=== PATIENT | male | born 1955 | race African-American/Black ===

== ENCOUNTER 2017-08-15 14:12 | Day surgery (SDC) | payer MEDICARE, MEDICAID ==
[~2017-08-15] VITALS: Ht 182.9 cm; Wt 117.9 kg
[~2017-08-15 14:12] MED LIST: ASPI-1159 PO; ATOR-2 PO; EPLE25TA10 PO; GLIP10TA10 PO; HYDR100T26 PO; METO100T16 PO; NIFE30TA94 PO
[2017-08-15] MEDS ORDERED: AMLO10TA80 MT (16:01)
[2017-08-15] MEDS ORDERED: DILT240C62 MT (16:01)
[2017-08-15] MEDS ORDERED: AMI2 PO (16:01)
[2017-08-15] MEDS ORDERED: CHOL100044 MT (16:01)
[2017-08-15] MEDS ORDERED: SEVE800T8 MT (16:01)
[2017-08-15] MEDS ORDERED: APIX2.5T MT (16:01)
[2017-08-15] MEDS ORDERED: FENTANYL CITRATE/PF 50MCG/ML 2ML VIAL ONE ×2 (16:39→17:08)
[2017-08-15] MEDS ORDERED: LIDOCAINE HCL 2% JELLY 5ML ONE (16:40)
[2017-08-15] MEDS ORDERED: MIDAZOLAM HCL 5 MG/5 ML VIAL ONE (16:40)
[2017-08-15] MEDS ORDERED: TETRACAINE/BENZOCAINE/BUTAMBEN 20 GM SPRAY MM ONE (16:40)
== END 2017-08-15 19:25 | disposition home or self-care (01) ==
LOC: CARD 14:12
PROVIDERS: ATTEND Specialist
DX: I48.92 Unspecified atrial flutter (principal); I35.1 Nonrheumatic aortic (valve) insufficiency; I34.0 Nonrheumatic mitral (valve) insufficiency; I13.11 Hypertensive heart and chronic kidney disease without heart failure, with stage 5 chronic kidney disease, or end stage renal disease; E11.22 Type 2 diabetes mellitus with diabetic chronic kidney disease; N18.6 End stage renal disease; E78.5 Hyperlipidemia, unspecified; Z98.890 Other specified postprocedural states; Z99.2 Dependence on renal dialysis; Z79.82 Long term (current) use of aspirin; Z79.899 Other long term (current) drug therapy
CPT/HCPCS: 92960; 93005; 93312; J2250; J3010

== ENCOUNTER 2017-11-28 06:18 | Day surgery (SDC) | payer MEDICARE, MEDICAID ==
[~2017-11-28] VITALS: Ht 182.9 cm; Wt 50.8 kg
[~2017-11-28 06:18] MED LIST changes: +AMI2 PO; +AMLO10TA80 MT; +APIX2.5T MT; +CHOL100044 MT; +DILT240C62 MT; +SEVE800T8 MT
[2017-11-28] MEDS ORDERED: LIDOCAINE HCL 1% 20ML VIAL (Pyxis) INJ ONE (07:43)
[2017-11-28] MEDS ORDERED: IODIXANOL 320MG/ML 100 ML BOTTLE IV ONE ×2 (07:43→09:29)
[2017-11-28 08:09] LABS: BASOPHILS % 1.3 % (0.0-2.0); HEMATOCRIT. 41.7 % (42.0-52.0); HEMOGLOBIN. 13.6 g/dL (14.0-18.0); LYMPHOCYTES % 30.3 % (20.0-50.0); MEAN CORPUSCULAR HEMOGLOBIN 32.4 pg (28.0-32.0); MEAN CORPUSCULAR VOLUME 99.3 fL (80.0-94.0); MEAN PLATELET VOLUME 9.2 fl (7.4-10.4); MONOCYTES % 13.1 % (2.0-8.0); NEUTROPHILS % 50.3 % (40.0-76.0); PLATELET 207 x1000/uL (130-400); RED CELL DISTRIBUTION WIDTH 19.3 % (11.6-14.6)
[2017-11-28 08:14] LABS: INR 1.1; PARTIAL THROMBOPLASTIN TIME 28.2 sec (23.4-31.0); PROTHROMBIN TIME 10.8 sec (9.1-11.1)
[2017-11-28] MEDS ORDERED: LOSA50TA20 MT (08:18)
[2017-11-28] MEDS ORDERED: COR3 MT (08:18)
[2017-11-28] MEDS ORDERED: MIDAZOLAM HCL 2 MG/2 ML VIAL ONE (08:45)
[2017-11-28] MEDS ORDERED: FENTANYL CITRATE/PF 50MCG/ML 2ML VIAL ONE (08:45)
[2017-11-28] MEDS ORDERED: ONDANSETRON HCL 4MG/2ML INJ IV PRN (10:00)
[2017-11-28] MEDS ORDERED: ACETAMINOPHEN 325MG TABLET PO PRN (10:00)
[2017-11-28] MEDS ORDERED: HEPARIN SODIUM 1,000 UNIT/1ML VIAL IV ONE (14:25)
== END 2017-11-28 13:45 | disposition home or self-care (01) ==
LOC: CCL 06:18
PROVIDERS: ATTEND Specialist
DX: I25.10 Atherosclerotic heart disease of native coronary artery without angina pectoris (principal); I51.7 Cardiomegaly; I12.0 Hypertensive chronic kidney disease with stage 5 chronic kidney disease or end stage renal disease; E11.22 Type 2 diabetes mellitus with diabetic chronic kidney disease; I48.92 Unspecified atrial flutter; N18.6 End stage renal disease; Z79.01 Long term (current) use of anticoagulants; Z79.899 Other long term (current) drug therapy; Z79.82 Long term (current) use of aspirin; E78.5 Hyperlipidemia, unspecified; Z98.890 Other specified postprocedural states; Z99.2 Dependence on renal dialysis
CPT/HCPCS: 36415; 80048; 85025; 85610; 85730; 93458; 99152; 99153; C1769; C1887; C1893; J1644; J2250; J3010; J3490; Q9967

== ENCOUNTER 2018-01-16 09:59 | Day surgery (SDC) | payer MEDICARE, MEDICAID ==
[~2018-01-16] VITALS: Ht 182.9 cm; Wt 51.3 kg
[~2018-01-16 09:59] MED LIST changes: +COR3 MT; +DILT-2 MT; -DILT240C62 MT; +LOSA50TA20 MT
[2018-01-16] MEDS ORDERED: MIDAZOLAM HCL 5 MG/5 ML VIAL ONE (11:14)
[2018-01-16] MEDS ORDERED: TETRACAINE/BENZOCAINE/BUTAMBEN 20 GM SPRAY MM ONE (11:14)
[2018-01-16] MEDS ORDERED: LIDOCAINE HCL 2% JELLY 5ML ONE (11:14)
[2018-01-16] MEDS ORDERED: FENTANYL CITRATE/PF 50MCG/ML 2ML VIAL ONE (11:14)
[2018-01-16] MEDS ORDERED: ONDANSETRON HCL 4MG/2ML INJ IV PRN (12:15)
[2018-01-16] MEDS ORDERED: ACETAMINOPHEN 325MG TABLET PO PRN (12:15)
== END 2018-01-16 15:15 | disposition home or self-care (01) ==
LOC: CARD 09:59
PROVIDERS: ATTEND Specialist
DX: I48.92 Unspecified atrial flutter (principal); I08.0 Rheumatic disorders of both mitral and aortic valves; I25.10 Atherosclerotic heart disease of native coronary artery without angina pectoris; E78.5 Hyperlipidemia, unspecified; I12.0 Hypertensive chronic kidney disease with stage 5 chronic kidney disease or end stage renal disease; E11.22 Type 2 diabetes mellitus with diabetic chronic kidney disease; N18.6 End stage renal disease; Z99.2 Dependence on renal dialysis; Z79.01 Long term (current) use of anticoagulants; Z79.82 Long term (current) use of aspirin; Z79.899 Other long term (current) drug therapy; Z98.890 Other specified postprocedural states
CPT/HCPCS: 82962; 92960; 93005; 93312; 99152; 99153; J2250; J3010; G0500

== ENCOUNTER 2019-07-02 12:34 | Emergency (ER) | payer MEDICARE, MEDICAID ==
[~2019-07-02] VITALS: Ht 182.9 cm; Wt 125.0 kg
[~2019-07-02 12:34] MED LIST changes: -AMLO10TA80 MT; -ASPI-1159 PO; +ASPI-1497 PO; -ATOR-2 PO; +ATOR20TA PO; -DILT-2 MT; +DILT240C96 MT; -EPLE25TA10 PO; -GLIP10TA10 PO; -HYDR100T26 PO; -LOSA50TA20 MT; +LOSA50TA41 MT; -METO100T16 PO; -NIFE30TA94 PO
[2019-07-02 13:17] LABS: BASOPHILS % 0.7 % (0.0-2.0); EOSINOPHILS % 0.6 % (0.0-5.0); HEMATOCRIT. 32.5 % (42.0-52.0); HEMOGLOBIN. 10.6 g/dL (14.0-18.0); LYMPHOCYTES % 16.2 % (20.0-50.0); MEAN CORPUSCULAR HEMOGLOBIN 29.1 pg (28.0-32.0); MEAN CORPUSCULAR VOLUME 89.3 fL (80.0-94.0); MEAN PLATELET VOLUME 8.2 fl (7.4-10.4); MONOCYTES % 12.4 % (2.0-8.0); NEUTROPHILS % 70.1 % (40.0-76.0); PLATELET 235 x1000/uL (130-400); RED BLOOD CELL COUNT 3.64 mill/uL (4.7-6.1); RED CELL DISTRIBUTION WIDTH 16.2 % (11.6-14.6)
[2019-07-02 13:25] LABS: CHLORIDE 101 mEq/L (98-107)
[2019-07-02 13:27] LABS: INR 1.1; PROTHROMBIN TIME 11.6 sec (9.6-11.0)
[2019-07-02] MEDS ORDERED: CYCLOBENZAPRINE 10MG TABLET PO ONE (14:15)
[2019-07-02] MEDS ORDERED: MORPHINE SULFATE 4 MG/ML CPJ (NOT FOR IM USE) IV ONE (14:15)
[2019-07-02 15:59] VITALS: BP 119/61
== END 2019-07-02 17:12 | disposition home or self-care (01) ==
LOC: ER 13:04
DX: S29.012A Strain of muscle and tendon of back wall of thorax, initial encounter (principal); Y93.B9 Activity, other involving muscle strengthening exercises; Y92.89 Other specified places as the place of occurrence of the external cause; Z99.3 Dependence on wheelchair; Z74.01 Bed confinement status; I12.0 Hypertensive chronic kidney disease with stage 5 chronic kidney disease or end stage renal disease; N18.6 End stage renal disease; Z99.2 Dependence on renal dialysis
CPT/HCPCS: 36415; 71045; 80053; 83605; 84484; 85025; 85610; 93005; 96374; 99285; J2270

== ENCOUNTER 2019-07-09 11:53 | Inpatient (IN) | payer MEDICARE, MEDICAID ==
[~2019-07-09] VITALS: Ht 182.9 cm; Wt 99.3 kg
[2019-07-09 14:02] LABS: BASOPHILS % 0.6 % (0.0-2.0); EOSINOPHILS % 0.5 % (0.0-5.0); HEMATOCRIT. 36.3 % (42.0-52.0); HEMOGLOBIN. 11.8 g/dL (14.0-18.0); LYMPHOCYTES % 11.6 % (20.0-50.0); MEAN CORPUSCULAR VOLUME 89.3 fL (80.0-94.0); MEAN PLATELET VOLUME 8.3 fl (7.4-10.4); MONOCYTES % 9.5 % (2.0-8.0); NEUTROPHILS % 77.8 % (40.0-76.0); PLATELET 283 x1000/uL (130-400); RED BLOOD CELL COUNT 4.06 mill/uL (4.7-6.1); RED CELL DISTRIBUTION WIDTH 16.2 % (11.6-14.6)
[2019-07-09 14:11] LABS: INR 1.1; PARTIAL THROMBOPLASTIN TIME 36.4 sec (23.4-31.0); PROTHROMBIN TIME 12.1 sec (9.6-11.0)
[2019-07-09 14:13] LABS: CHLORIDE 101 mEq/L (98-107)
[2019-07-09] MEDS ORDERED: SODIUM CHLORIDE 0.9% 1,000 ML IV ONE (14:38)
[2019-07-09] MEDS ORDERED: DEXTROSE 50% WATER 50ML SYRINGE IV PRN ×2 (17:45→18:30)
[2019-07-09] MEDS ORDERED: MAGNESIUM/ALUMINUM HYDROXIDE/SIMETHICONE 30ML UDC PO PRN (17:45)
[2019-07-09] MEDS ORDERED: ENOXAPARIN 40MG/0.4ML SYR SUBCUT SCH (17:45)
[2019-07-09] MEDS: BLOOD SUGAR DIAGNOSTIC STRIP TEST SCH ×2 (17:45→21:00)
[2019-07-09] MEDS ORDERED: GUAIFENESIN 200MG/10ML SUGAR FREE UDC PO PRN (17:45)
[2019-07-09] MEDS ORDERED: DOCUSATE SODIUM 100MG CAPSULE PO PRN (17:45)
[2019-07-09] MEDS ORDERED: LORAZEPAM 2MG/ML CPJ IV PRN (17:45)
[2019-07-09] MEDS ORDERED: PIPERACILLIN/TAZ 3.375G PREMIX 50 ML IV SCH (17:45)
[2019-07-09] MEDS ORDERED: ONDANSETRON HCL 4MG/2ML INJ IV PRN (17:45)
[2019-07-09] MEDS ORDERED: ACETAMINOPHEN 325MG TABLET PO PRN (17:45)
[2019-07-09] MEDS ORDERED: IPRATROPIUM/ALBUTEROL 0.5-3(2.5)MG/3ML NEB NEB PRN (17:45)
[2019-07-09] MEDS ORDERED: DIPHENHYDRAMINE 50MG/ML VIAL IV PRN (17:45)
[2019-07-09] MEDS ORDERED: HYDRALAZINE 20MG/ML VIAL IV PRN (17:45)
[2019-07-09] MEDS ORDERED: MORPHINE SULFATE 2 MG/ML CPJ (NOT FOR IM USE) IV PRN (18:25)
[2019-07-09] MEDS ORDERED: HYDROCODONE/ACETAMINOPHEN 10/325MG TABLET PO PRN (18:25)
[2019-07-09] MEDS: INSULIN LISPRO 100 UNITS/ML SUBCUT SCH (22:00)
[2019-07-10] MEDS ORDERED: HYDRALAZINE 20MG/ML VIAL IV PRN (05:41)
[2019-07-10 06:03] LABS: BASOPHILS % 0.4 % (0.0-2.0); EOSINOPHILS % 0.4 % (0.0-5.0); HEMATOCRIT. 39.3 % (42.0-52.0); HEMOGLOBIN. 12.6 g/dL (14.0-18.0); LYMPHOCYTES % 11.7 % (20.0-50.0); MEAN CORPUSCULAR HEMOGLOBIN 28.8 pg (28.0-32.0); MEAN CORPUSCULAR VOLUME 89.9 fL (80.0-94.0); MEAN PLATELET VOLUME 8.2 fl (7.4-10.4); NEUTROPHILS % 76.5 % (40.0-76.0); PLATELET 240 x1000/uL (130-400); RED BLOOD CELL COUNT 4.37 mill/uL (4.7-6.1); RED CELL DISTRIBUTION WIDTH 16.8 % (11.6-14.6)
[2019-07-10 06:06] LABS: CHLORIDE 103 mEq/L (98-107)
[2019-07-10 06:15] LABS: LDL CHOLESTEROL 32 mg/dL (5-100)
[2019-07-10 06:17] LABS: T4 FREE 1.32 ng/dL (0.76-1.46)
[2019-07-10 06:18] LABS: HDL CHOLESTEROL 31 mg/dL (40-59)
[2019-07-10] MEDS ORDERED: PIPERACILLIN/TAZ 3.375G PREMIX 50 ML IV SCH ×2 (10:35→20:00)
[2019-07-10] MEDS ORDERED: PIPERACILLIN/TAZ 3.375G PREMIX 50 ML IV NR (10:45)
[2019-07-10] MEDS: INSULIN LISPRO 100 UNITS/ML SUBCUT SCH ×6 (11:28→21:00)
[2019-07-10] MEDS: BLOOD SUGAR DIAGNOSTIC STRIP TEST SCH ×4 (11:31→21:23)
[2019-07-10] MEDS: ENOXAPARIN 40MG/0.4ML SYR SUBCUT SCH (11:43)
[2019-07-10 13:30] VITALS: BP 174/91
[2019-07-10] MEDS: CLONIDINE 0.1MG TABLET PO PRN (14:26)
[2019-07-10 16:54] VITALS: BP 160/95
[2019-07-10] MEDS: PIPERACILLIN/TAZ 2.25G PREMIX 50 ML IV SCH (18:03)
[2019-07-10] MEDS: SODIUM CHLORIDE 0.9% INJ 3ML FLUSH IVF SCH ×2 (18:04→21:44)
[2019-07-10 20:00] VITALS: BP 163/91
[2019-07-11] VITALS: BP 160/90
[2019-07-11] MEDS: PIPERACILLIN/TAZ 2.25G PREMIX 50 ML IV SCH ×4 (01:08→20:48)
[2019-07-11 04:00] VITALS: BP 188/97
[2019-07-11] MEDS: SODIUM CHLORIDE 0.9% INJ 3ML FLUSH IVF SCH ×3 (05:43→21:12)
[2019-07-11] MEDS: HYDRALAZINE 20MG/ML VIAL IV PRN (05:56)
[2019-07-11] MEDS: BLOOD SUGAR DIAGNOSTIC STRIP TEST SCH ×4 (06:42→21:25)
[2019-07-11] MEDS: INSULIN LISPRO 100 UNITS/ML SUBCUT SCH ×4 (07:23→22:21)
[2019-07-11 09:19] VITALS: BP 177/97
[2019-07-11] MEDS: ENOXAPARIN 40MG/0.4ML SYR SUBCUT SCH (11:16)
[2019-07-11] MEDS: CLONIDINE 0.1MG TABLET PO PRN (12:09)
[2019-07-11 12:34] VITALS: BP 160/90
[2019-07-11 16:18] VITALS: BP 166/89
[2019-07-11 20:00] VITALS: BP 134/80
[2019-07-12] VITALS: BP 167/86
[2019-07-12] MEDS: PIPERACILLIN/TAZ 2.25G PREMIX 50 ML IV SCH ×2 (01:42→10:29)
[2019-07-12 03:10] VITALS: BP 154/86
[2019-07-12] MEDS: SODIUM CHLORIDE 0.9% INJ 3ML FLUSH IVF SCH ×3 (06:00→21:06)
[2019-07-12] MEDS: INSULIN LISPRO 100 UNITS/ML SUBCUT SCH ×4 (07:08→21:06)
[2019-07-12] MEDS: BLOOD SUGAR DIAGNOSTIC STRIP TEST SCH ×4 (07:08→20:51)
[2019-07-12 08:00] VITALS: BP 176/83
[2019-07-12] MEDS: ENOXAPARIN 40MG/0.4ML SYR SUBCUT SCH (10:34)
[2019-07-12 12:00] VITALS: BP 187/91
[2019-07-12 16:00] VITALS: BP 172/89
[2019-07-12 20:00] VITALS: BP 158/93
[2019-07-13] VITALS: BP 155/86
[2019-07-13] MEDS: PIPERACILLIN/TAZOBACTAM 2.25 G in DEXTROSE 5% WATER 50 ML IV SCH ×3 (02:36→17:56)
[2019-07-13 04:00] VITALS: BP 151/88
[2019-07-13] MEDS: BLOOD SUGAR DIAGNOSTIC STRIP TEST SCH ×4 (06:17→21:47)
[2019-07-13] MEDS: SODIUM CHLORIDE 0.9% INJ 3ML FLUSH IVF SCH ×3 (06:28→21:47)
[2019-07-13 06:40] LABS: HEMATOCRIT. 33.8 % (42.0-52.0); HEMOGLOBIN. 11.1 g/dL (14.0-18.0); MEAN CORPUSCULAR HEMOGLOBIN 28.8 pg (28.0-32.0); MEAN CORPUSCULAR VOLUME 87.9 fL (80.0-94.0); MEAN PLATELET VOLUME 8.8 fl (7.4-10.4); PLATELET 211 x1000/uL (130-400); RED BLOOD CELL COUNT 3.84 mill/uL (4.7-6.1); RED CELL DISTRIBUTION WIDTH 16.1 % (11.6-14.6)
[2019-07-13 08:00] VITALS: BP 176/86
[2019-07-13] MEDS: INSULIN LISPRO 100 UNITS/ML SUBCUT SCH ×4 (08:35→21:52)
[2019-07-13 10:05] LABS: PLATELET ESTIMATE NORMAL
[2019-07-13 12:00] VITALS: BP 136/78
[2019-07-13] MEDS: ENOXAPARIN 40MG/0.4ML SYR SUBCUT SCH (12:15)
[2019-07-13 16:00] VITALS: BP 171/88
[2019-07-13] MEDS: CLONIDINE 0.1MG TABLET PO PRN (16:39)
[2019-07-13 20:00] VITALS: BP 145/73
[2019-07-14] VITALS: BP 118/74
[2019-07-14] MEDS: PIPERACILLIN/TAZOBACTAM 2.25 G in DEXTROSE 5% WATER 50 ML IV SCH ×3 (02:06→18:22)
[2019-07-14 04:00] VITALS: BP 135/81
[2019-07-14] MEDS: SODIUM CHLORIDE 0.9% INJ 3ML FLUSH IVF SCH ×3 (04:56→21:06)
[2019-07-14] MEDS: BLOOD SUGAR DIAGNOSTIC STRIP TEST SCH ×4 (07:01→21:05)
[2019-07-14 08:00] VITALS: BP 195/90
[2019-07-14] MEDS: INSULIN LISPRO 100 UNITS/ML SUBCUT SCH ×4 (09:23→22:08)
[2019-07-14] MEDS: HYDRALAZINE 20MG/ML VIAL IV PRN ×2 (09:27→21:06)
[2019-07-14] MEDS: ENOXAPARIN 40MG/0.4ML SYR SUBCUT SCH (11:15)
[2019-07-14 12:00] VITALS: BP_SYST 164; BP_SYST 169; BP_DIAS 78
[2019-07-14] MEDS: HYDRALAZINE HCL 50MG TABLET PO SCH ×2 (13:26→22:00)
[2019-07-14] MEDS ORDERED: LACTULOSE 20G/30ML UDC PO NR (14:00)
[2019-07-14 16:00] VITALS: BP 162/85
[2019-07-14 20:00] VITALS: BP 195/91
[2019-07-15] VITALS: BP 166/84
[2019-07-15] MEDS: PIPERACILLIN/TAZOBACTAM 2.25 G in DEXTROSE 5% WATER 50 ML IV SCH ×3 (03:05→18:00)
[2019-07-15 04:00] VITALS: BP 164/92
[2019-07-15] MEDS: HYDRALAZINE HCL 50MG TABLET PO SCH (06:00)
[2019-07-15] MEDS: SODIUM CHLORIDE 0.9% INJ 3ML FLUSH IVF SCH ×2 (07:04→14:00)
[2019-07-15] MEDS: BLOOD SUGAR DIAGNOSTIC STRIP TEST SCH ×3 (07:20→18:05)
[2019-07-15] MEDS: INSULIN LISPRO 100 UNITS/ML SUBCUT SCH ×3 (07:40→17:50)
[2019-07-15 08:00] VITALS: BP 191/90
[2019-07-15] MEDS: ENOXAPARIN 40MG/0.4ML SYR SUBCUT SCH (11:00)
[2019-07-15 12:00] VITALS: BP 159/75
[2019-07-15 13:56] VITALS: BP 159/75
[2019-07-15] MEDS ORDERED: HYDRALAZINE HCL 50MG TABLET PO SCH (14:00)
[2019-07-15 16:00] VITALS: BP 172/99
[2019-07-15] MEDS: CLONIDINE 0.1MG TABLET PO PRN (18:56)
== END 2019-07-15 19:20 | DRG 91 ==
LOC: ER 12:14 → 7WST 16:32 → EDBEDREQTM 16:34 → EDBEDREQ 16:34 → EDBEDREQTM 16:36 → ENRESERV 07-10 12:37 → 6WST 07-12 02:51
PROVIDERS: ADMIT Internal Medicine; ATTEND Internal Medicine
PROC: 5A1D70Z Performance of Urinary Filtration, Intermittent, Less than 6 Hours Per Day (ICD-10-PCS; 2019-07-11)
PROC: 5A1D70Z Performance of Urinary Filtration, Intermittent, Less than 6 Hours Per Day (ICD-10-PCS; 2019-07-13)
PROC: 5A1D70Z Performance of Urinary Filtration, Intermittent, Less than 6 Hours Per Day (ICD-10-PCS; principal; 2019-07-15)
DX: G92 Toxic encephalopathy (principal); N18.6 End stage renal disease; I13.2 Hypertensive heart and chronic kidney disease with heart failure and with stage 5 chronic kidney disease, or end stage renal disease; E46 Unspecified protein-calorie malnutrition; I50.42 Chronic combined systolic (congestive) and diastolic (congestive) heart failure; I69.351 Hemiplegia and hemiparesis following cerebral infarction affecting right dominant side; N25.81 Secondary hyperparathyroidism of renal origin; L97.909 Non-pressure chronic ulcer of unspecified part of unspecified lower leg with unspecified severity; L89.522 Pressure ulcer of left ankle, stage 2; E11.22 Type 2 diabetes mellitus with diabetic chronic kidney disease; D64.9 Anemia, unspecified; E78.5 Hyperlipidemia, unspecified; E11.40 Type 2 diabetes mellitus with diabetic neuropathy, unspecified; L89.152 Pressure ulcer of sacral region, stage 2; L89.891 Pressure ulcer of other site, stage 1; Z20.828 Contact with and (suspected) exposure to other viral communicable diseases; E11.319 Type 2 diabetes mellitus with unspecified diabetic retinopathy without macular edema; E87.5 Hyperkalemia; D72.810 Lymphocytopenia; R74.0 Nonspecific elevation of levels of transaminase and lactic acid dehydrogenase [LDH]; E83.59 Other disorders of calcium metabolism; I25.10 Atherosclerotic heart disease of native coronary artery without angina pectoris; Z74.01 Bed confinement status; Z99.2 Dependence on renal dialysis; Z99.3 Dependence on wheelchair; Z79.01 Long term (current) use of anticoagulants; Z79.899 Other long term (current) drug therapy; Z79.82 Long term (current) use of aspirin
CPT/HCPCS: 36415; 71045; 80048; 80053; 80061; 82962; 83880; 84439; 84443; 84484; 85025; 87635; 93005; 99285; J0360; J1650; J1815; J2543; J7030; J7060; U0003-CS

== ENCOUNTER 2019-08-13 14:40 | Inpatient (IN) | payer MEDICARE, MEDICAID ==
[~2019-08-13] VITALS: Ht 182.9 cm; Wt 93.4 kg
[2019-08-13] MEDS ORDERED: PIPERACILLIN/TAZ 3.375G PREMIX 50 ML IV ONE (15:30)
[2019-08-13] MEDS ORDERED: VANCOMYCIN 1 G PREMIX 200 ML IV ONE (15:30)
[2019-08-13 17:31] LABS: BASOPHILS % 0.3 % (0.0-2.0); CHLORIDE 102 mEq/L (98-107); EOSINOPHILS % 0.8 % (0.0-5.0); HEMATOCRIT. 35.3 % (42.0-52.0); HEMOGLOBIN. 11.4 g/dL (14.0-18.0); LYMPHOCYTES % 15.1 % (20.0-50.0); MEAN CORPUSCULAR HEMOGLOBIN 29.4 pg (28.0-32.0); MEAN CORPUSCULAR VOLUME 91.4 fL (80.0-94.0); MEAN PLATELET VOLUME 8.1 fl (7.4-10.4); MONOCYTES % 11.7 % (2.0-8.0); NEUTROPHILS % 72.1 % (40.0-76.0); PLATELET 162 x1000/uL (130-400); RED BLOOD CELL COUNT 3.86 mill/uL (4.7-6.1); RED CELL DISTRIBUTION WIDTH 20.6 % (11.6-14.6)
[2019-08-13 17:38] LABS: INR 1.1; PROTHROMBIN TIME 11.2 sec (9.6-11.0)
[2019-08-13] MEDS ORDERED: HYDROCODONE/ACETAMINOPHEN 10/325MG TABLET PO PRN (21:00)
[2019-08-13] MEDS ORDERED: IPRATROPIUM/ALBUTEROL 0.5-3(2.5)MG/3ML NEB HHN PRN (21:00)
[2019-08-13] MEDS ORDERED: DOCUSATE SODIUM 100MG CAPSULE PO PRN (21:00)
[2019-08-13] MEDS ORDERED: HYDRALAZINE 20MG/ML VIAL IV PRN (21:00)
[2019-08-13] MEDS ORDERED: LORAZEPAM 2MG/ML CPJ IV PRN (21:00)
[2019-08-13] MEDS ORDERED: DIPHENHYDRAMINE 50MG/ML VIAL IV PRN (21:00)
[2019-08-13] MEDS ORDERED: ONDANSETRON HCL 4MG/2ML INJ IV PRN (21:00)
[2019-08-13] MEDS ORDERED: GUAIFENESIN 200MG/10ML SUGAR FREE UDC PO PRN (21:00)
[2019-08-13] MEDS ORDERED: MORPHINE SULFATE 2 MG/ML CPJ (NOT FOR IM USE) IV PRN (21:00)
[2019-08-13] MEDS ORDERED: MAGNESIUM/ALUMINUM HYDROXIDE/SIMETHICONE 30ML UDC PO PRN (21:00)
[2019-08-13] MEDS ORDERED: ACETAMINOPHEN 325MG TABLET PO PRN (21:00)
[2019-08-13] MEDS ORDERED: ENOXAPARIN 40MG/0.4ML SYR SUBCUT SCH (21:00)
[2019-08-13] MEDS ORDERED: CLONIDINE 0.1MG TABLET PO PRN (21:00)
[2019-08-13] MEDS ORDERED: VANCOMYCIN 750 MG PREMIX 150 ML IV NR (23:00)
[2019-08-13 23:10] VITALS: BP 151/84
[2019-08-14 00:39] VITALS: BP 151/84
[2019-08-14] MEDS ORDERED: PIPERACILLIN/TAZOBACTAM 2.25 G in DEXTROSE 5% WATER 50 ML IV SCH (01:00)
[2019-08-14] MEDS: SODIUM CHLORIDE 0.9% INJ 3ML FLUSH IVF SCH ×4 (02:48→21:32)
[2019-08-14] MEDS ORDERED: DOCU-138 MT (03:10)
[2019-08-14] MEDS ORDERED: NEPVIT MT (03:10)
[2019-08-14] MEDS ORDERED: HYDR-4135 MT (03:10)
[2019-08-14] MEDS ORDERED: CLON-457 PO (03:10)
[2019-08-14] MEDS ORDERED: ASCO500C18 MT (03:10)
[2019-08-14] MEDS ORDERED: HYDR-3281 PO (03:10)
[2019-08-14] MEDS ORDERED: TOPUD PO (03:10)
[2019-08-14 04:00] VITALS: BP 134/72
[2019-08-14 08:06] VITALS: BP 159/91
[2019-08-14] MEDS ORDERED: PIPERACILLIN/TAZ 3.375G PREMIX 50 ML IV SCH (09:00)
[2019-08-14 09:27] LABS: HEMATOCRIT. 31.8 % (42.0-52.0); HEMOGLOBIN. 10.3 g/dL (14.0-18.0); MEAN CORPUSCULAR HEMOGLOBIN 29.4 pg (28.0-32.0); MEAN CORPUSCULAR VOLUME 90.9 fL (80.0-94.0); MEAN PLATELET VOLUME 7.8 fl (7.4-10.4); PLATELET 135 x1000/uL (130-400); RED CELL DISTRIBUTION WIDTH 19.8 % (11.6-14.6)
[2019-08-14 09:37] LABS: CHLORIDE 102 mEq/L (98-107)
[2019-08-14 09:47] LABS: CREATINE KINASE 77 IU/L (39-308)
[2019-08-14 09:51] LABS: CREATINE KINASE MB FRACTION 3.3 ng/mL (0.5-3.6)
[2019-08-14] MEDS ORDERED: DEXTROSE 50% WATER 50ML SYRINGE IV PRN (11:45)
[2019-08-14] MEDS: BLOOD SUGAR DIAGNOSTIC STRIP TEST SCH ×3 (11:45→21:25)
[2019-08-14 12:00] VITALS: BP 152/89
[2019-08-14] MEDS: INSULIN LISPRO 100 UNITS/ML SUBCUT SCH ×3 (12:15→21:32)
[2019-08-14 12:51] LABS: PLATELET ESTIMATE NORMAL
[2019-08-14] MEDS: CEFTRIAXONE 1 G PREMIX 50 ML IV SCH (15:29)
[2019-08-14] MEDS: METRONIDAZOLE 500MG TABLET PO SCH ×2 (15:30→23:03)
[2019-08-14 16:00] VITALS: BP 131/79
[2019-08-14 20:00] VITALS: BP 143/75
[2019-08-15] VITALS (7 sets, daily range): BP systolic 126–164; BP diastolic 75–91
[2019-08-15] MEDS: METRONIDAZOLE 500MG TABLET PO SCH ×3 (06:55→21:07)
[2019-08-15] MEDS: SODIUM CHLORIDE 0.9% INJ 3ML FLUSH IVF SCH ×3 (06:55→21:07)
[2019-08-15] MEDS: BLOOD SUGAR DIAGNOSTIC STRIP TEST SCH ×4 (06:55→21:00)
[2019-08-15] MEDS: INSULIN LISPRO 100 UNITS/ML SUBCUT SCH ×4 (06:58→21:00)
[2019-08-15] MEDS ORDERED: DEXAMETHASONE 4MG/ML 1ML VIAL ONE (07:26)
[2019-08-15] MEDS ORDERED: GENTAMICIN SULF 40MG/ML 2ML VIAL ONE (07:26)
[2019-08-15] MEDS ORDERED: LIDOCAINE HCL 1% 20ML VIAL (Pyxis) INJ ONE (07:27)
[2019-08-15] MEDS ORDERED: NORMAL SALINE 0.9% 10 ML SYR ONE (07:27)
[2019-08-15] MEDS ORDERED: BACITRACIN 15GM TUBE TOP ONE ×2 (07:27→08:44)
[2019-08-15] MEDS ORDERED: BACITRACIN 50,000 UNITS/VIAL ONE (07:28)
[2019-08-15] MEDS ORDERED: BUPIVACAINE HCL/PF 0.5% (5MG/ML) 10ML ONE (07:29)
[2019-08-15] MEDS ORDERED: SUCCINYLCHOLINE CHLORIDE 200MG/10ML IV ONE (08:51)
[2019-08-15] MEDS ORDERED: GLYCOPYRROLATE 0.2 MG/ML 2ML VIAL ONE (08:51)
[2019-08-15] MEDS ORDERED: METOCLOPRAMIDE HCL 10MG/2ML VIAL ONE (08:51)
[2019-08-15] MEDS ORDERED: LIDOCAINE HCL/PF 1% 10 MG/ML 5ML VIAL ONE (08:51)
[2019-08-15] MEDS ORDERED: MIDAZOLAM HCL 2 MG/2 ML VIAL ONE (08:51)
[2019-08-15] MEDS ORDERED: ONDANSETRON HCL 4MG/2ML INJ ONE (08:51)
[2019-08-15] MEDS ORDERED: FENTANYL CITRATE/PF 50MCG/ML 2ML VIAL ONE (08:51)
[2019-08-15] MEDS ORDERED: PROPOFOL 200MG/20ML VIAL IV ONE (08:51)
[2019-08-15] MEDS: ENOXAPARIN 30MG/0.3ML SYR SUBCUT SCH (09:00)
[2019-08-15] MEDS ORDERED: SODIUM CHLORIDE 0.9% 1,000 ML IV ONE (10:01)
[2019-08-15] MEDS ORDERED: HYDROMORPHONE HCL/PF 2MG/ML CPJ IV PRN (10:15)
[2019-08-15] MEDS ORDERED: ONDANSETRON HCL 4MG/2ML INJ IV PRN (10:15)
[2019-08-15] MEDS ORDERED: VANCOMYCIN 500 MG PREMIX 100 ML IV NR (11:30)
[2019-08-15] MEDS: CEFTRIAXONE 1 G PREMIX 50 ML IV SCH (16:10)
[2019-08-15] MEDS ORDERED: EPOETIN ALFA 4000UNITS/ML VIAL SUBCUT SCH (21:00)
[2019-08-16] VITALS: BP 151/86
[2019-08-16 04:00] VITALS: BP 146/76
[2019-08-16] MEDS: METRONIDAZOLE 500MG TABLET PO SCH ×3 (05:46→22:58)
[2019-08-16] MEDS: SODIUM CHLORIDE 0.9% INJ 3ML FLUSH IVF SCH ×3 (05:48→21:39)
[2019-08-16] MEDS: INSULIN LISPRO 100 UNITS/ML SUBCUT SCH ×4 (05:59→21:00)
[2019-08-16] MEDS: BLOOD SUGAR DIAGNOSTIC STRIP TEST SCH ×4 (05:59→21:35)
[2019-08-16 08:00] VITALS: BP 137/83
[2019-08-16] MEDS: ENOXAPARIN 30MG/0.3ML SYR SUBCUT SCH (09:34)
[2019-08-16 12:00] VITALS: BP 139/76
[2019-08-16 16:00] VITALS: BP 164/91
[2019-08-16] MEDS: CEFTRIAXONE 1 G PREMIX 50 ML IV SCH (17:54)
[2019-08-16] MEDS ORDERED: VANCOMYCIN 500 MG PREMIX 100 ML IV SCH (19:30)
[2019-08-16 20:24] VITALS: BP 136/80
[2019-08-17 00:03] VITALS: BP 148/82
[2019-08-17 04:00] VITALS: BP 152/81
[2019-08-17] MEDS: SODIUM CHLORIDE 0.9% INJ 3ML FLUSH IVF SCH ×3 (05:11→22:43)
[2019-08-17] MEDS: METRONIDAZOLE 500MG TABLET PO SCH ×3 (05:14→22:51)
[2019-08-17] MEDS: BLOOD SUGAR DIAGNOSTIC STRIP TEST SCH ×4 (06:03→21:00)
[2019-08-17] MEDS: INSULIN LISPRO 100 UNITS/ML SUBCUT SCH ×4 (06:37→21:00)
[2019-08-17 06:47] LABS: BASOPHILS % 1.1 % (0.0-2.0); EOSINOPHILS % 2.2 % (0.0-5.0); HEMATOCRIT. 31.6 % (42.0-52.0); HEMOGLOBIN. 10.3 g/dL (14.0-18.0); LYMPHOCYTES % 21.6 % (20.0-50.0); MEAN CORPUSCULAR HEMOGLOBIN 29.5 pg (28.0-32.0); MEAN CORPUSCULAR VOLUME 90.6 fL (80.0-94.0); MEAN PLATELET VOLUME 8.5 fl (7.4-10.4); MONOCYTES % 14.6 % (2.0-8.0); NEUTROPHILS % 60.5 % (40.0-76.0); PLATELET 171 x1000/uL (130-400); RED BLOOD CELL COUNT 3.49 mill/uL (4.7-6.1); RED CELL DISTRIBUTION WIDTH 20.1 % (11.6-14.6)
[2019-08-17 08:14] VITALS: BP 122/83
[2019-08-17] MEDS: ENOXAPARIN 30MG/0.3ML SYR SUBCUT SCH (08:51)
[2019-08-17 12:00] VITALS: BP 123/72
[2019-08-17 16:00] VITALS: BP 136/70
[2019-08-17] MEDS: CEFTRIAXONE 1 G PREMIX 50 ML IV SCH (16:21)
[2019-08-17 20:00] VITALS: BP 126/68
[2019-08-18] VITALS (7 sets, daily range): BP systolic 131–171; BP diastolic 72–88
[2019-08-18] MEDS: SODIUM CHLORIDE 0.9% INJ 3ML FLUSH IVF SCH ×2 (06:00→14:39)
[2019-08-18] MEDS: INSULIN LISPRO 100 UNITS/ML SUBCUT SCH ×3 (06:27→16:49)
[2019-08-18] MEDS: BLOOD SUGAR DIAGNOSTIC STRIP TEST SCH ×3 (06:27→16:40)
[2019-08-18] MEDS: METRONIDAZOLE 500MG TABLET PO SCH ×2 (06:36→14:39)
[2019-08-18] MEDS: ENOXAPARIN 30MG/0.3ML SYR SUBCUT SCH (09:11)
[2019-08-18] MEDS: CEFTRIAXONE 1 G PREMIX 50 ML IV SCH (15:47)
== END 2019-08-18 22:00 | DRG 239 ==
LOC: ER 14:40 → 5WST 18:22 → EDBEDREQTM 18:24 → EDBEDREQ 18:24 → ENRESERV 21:27 → 5WST 08-14 20:56
PROVIDERS: ADMIT Internal Medicine; ATTEND Internal Medicine
PROC: 5A1D70Z Performance of Urinary Filtration, Intermittent, Less than 6 Hours Per Day (ICD-10-PCS; 2019-08-14)
PROC: 5A1D70Z Performance of Urinary Filtration, Intermittent, Less than 6 Hours Per Day (ICD-10-PCS; 2019-08-15)
PROC: 0Y6N0ZD Detachment at Left Foot, Partial 4th Ray, Open Approach (ICD-10-PCS; principal; 2019-08-18)
PROC: 0JB70ZZ Excision of Back Subcutaneous Tissue and Fascia, Open Approach (ICD-10-PCS; 2019-08-18)
DX: E11.52 Type 2 diabetes mellitus with diabetic peripheral angiopathy with gangrene (principal); L89.153 Pressure ulcer of sacral region, stage 3; N18.6 End stage renal disease; E46 Unspecified protein-calorie malnutrition; I13.2 Hypertensive heart and chronic kidney disease with heart failure and with stage 5 chronic kidney disease, or end stage renal disease; I48.92 Unspecified atrial flutter; I50.30 Unspecified diastolic (congestive) heart failure; L97.329 Non-pressure chronic ulcer of left ankle with unspecified severity; M86.8X7 Other osteomyelitis, ankle and foot; I69.154 Hemiplegia and hemiparesis following nontraumatic intracerebral hemorrhage affecting left non-dominant side; N25.81 Secondary hyperparathyroidism of renal origin; E11.69 Type 2 diabetes mellitus with other specified complication; E11.22 Type 2 diabetes mellitus with diabetic chronic kidney disease; E11.65 Type 2 diabetes mellitus with hyperglycemia; D64.9 Anemia, unspecified; E78.5 Hyperlipidemia, unspecified; I25.10 Atherosclerotic heart disease of native coronary artery without angina pectoris; D69.6 Thrombocytopenia, unspecified; M85.80 Other specified disorders of bone density and structure, unspecified site; R13.10 Dysphagia, unspecified; E11.40 Type 2 diabetes mellitus with diabetic neuropathy, unspecified; E11.319 Type 2 diabetes mellitus with unspecified diabetic retinopathy without macular edema; E11.21 Type 2 diabetes mellitus with diabetic nephropathy; E83.59 Other disorders of calcium metabolism; Z99.2 Dependence on renal dialysis; Z68.27 Body mass index [BMI] 27.0-27.9, adult; Z79.899 Other long term (current) drug therapy; Z79.82 Long term (current) use of aspirin
CPT/HCPCS: 36415; 71045; 73630; 80048; 80053; 80202; 82550; 82553; 82962; 83036; 83605; 84145; 84484; 85025; 85651; 86140; 87070; 87075; 87077; 88304; 88305; 88311; 93005; 99291; J0330; J0696; J1100; J1580; J1650; J1815; J2250; J2405; J2543; J2704; J2765; J3010; J3370; J3490; J7060

== ENCOUNTER 2019-11-24 14:06 | Inpatient (IN) | payer MEDICARE, MEDICAID ==
[~2019-11-24] VITALS: Ht 172.7 cm; Wt 104.8 kg
[~2019-11-24 14:06] MED LIST changes: +ASCO500C18 MT; +CLON-457 PO; +DOCU-138 MT; +HYDR-3281 PO; +HYDR-4135 MT; +NEPVIT MT; +TOPUD PO
[2019-11-24] MEDS ORDERED: LORAZEPAM 2MG/ML CPJ IM STA (15:10)
[2019-11-24] MEDS ORDERED: ACETAMINOPHEN 325MG TABLET PO ONE (15:15)
[2019-11-24] MEDS ORDERED: PIPERACILLIN/TAZ 3.375G PREMIX 50 ML IV ONE (15:15)
[2019-11-24] MEDS ORDERED: SODIUM CHLORIDE 0.9% 1000ML BAG (SEPSIS BOLUS) IV ONE (15:15)
[2019-11-24] MEDS ORDERED: VANCOMYCIN 1 G PREMIX 200 ML IV ONE (15:15)
[2019-11-24] MEDS ORDERED: LOSARTAN POTASSIUM 50 MG TABLET PO SCH (15:30)
[2019-11-24 17:03] LABS: HEMATOCRIT. 36.4 % (42.0-52.0); HEMOGLOBIN. 11.7 g/dL (14.0-18.0); MEAN CORPUSCULAR HEMOGLOBIN 30.6 pg (28.0-32.0); MEAN CORPUSCULAR VOLUME 95.1 fL (80.0-94.0); MEAN PLATELET VOLUME 8.6 fl (7.4-10.4); PLATELET 134 x1000/uL (130-400); RED BLOOD CELL COUNT 3.83 mill/uL (4.7-6.1); RED CELL DISTRIBUTION WIDTH 17.4 % (11.6-14.6)
[2019-11-24 17:04] LABS: CHLORIDE 103 mEq/L (98-107)
[2019-11-24 17:08] LABS: INR 1.1; PARTIAL THROMBOPLASTIN TIME 24.3 sec (23.4-31.0); PROTHROMBIN TIME 11.2 sec (9.6-11.0)
[2019-11-24] MEDS: CARVEDILOL 6.25 MG TABLET PO SCH (17:50)
[2019-11-24 18:16] LABS: PLATELET ESTIMATE NORMAL
[2019-11-24] MEDS: DILTIAZEM HCL 60MG TABLET PO SCH (18:37)
[2019-11-24] MEDS ORDERED: MAGNESIUM/ALUMINUM HYDROXIDE/SIMETHICONE 30ML UDC PO PRN (19:45)
[2019-11-24] MEDS ORDERED: CEFTRIAXONE 1 G PREMIX 50 ML IV NR (19:45)
[2019-11-24] MEDS ORDERED: ONDANSETRON HCL 4MG/2ML INJ IV PRN (19:45)
[2019-11-24] MEDS ORDERED: LORAZEPAM 2MG/ML CPJ IV PRN (19:45)
[2019-11-24] MEDS ORDERED: ENOXAPARIN 40MG/0.4ML SYR SUBCUT SCH (19:45)
[2019-11-24] MEDS ORDERED: CLONIDINE 0.1MG TABLET PO PRN (19:45)
[2019-11-24] MEDS ORDERED: DIPHENHYDRAMINE 50MG/ML VIAL IV PRN (19:45)
[2019-11-24] MEDS ORDERED: AZITHROMYCIN 500 MG in DEXT 5% WATER 250 ML IV NR (21:00)
[2019-11-25] MEDS: DILTIAZEM HCL 60MG TABLET PO SCH ×2 (02:27→05:43)
[2019-11-25] MEDS: ACETAMINOPHEN 325MG TABLET PO PRN (02:27)
[2019-11-25 03:30] VITALS: BP 151/81
[2019-11-25 04:00] VITALS: BP 145/78
[2019-11-25 06:36] LABS: HEMATOCRIT. 35.9 % (42.0-52.0); HEMOGLOBIN. 11.8 g/dL (14.0-18.0); MEAN CORPUSCULAR HEMOGLOBIN 31.4 pg (28.0-32.0); MEAN CORPUSCULAR VOLUME 95.7 fL (80.0-94.0); MEAN PLATELET VOLUME 8.9 fl (7.4-10.4); PLATELET 124 x1000/uL (130-400); RED BLOOD CELL COUNT 3.75 mill/uL (4.7-6.1); RED CELL DISTRIBUTION WIDTH 17.3 % (11.6-14.6)
[2019-11-25] MEDS: AMLODIPINE 10MG TABLET PO SCH (09:00)
[2019-11-25] MEDS: CARVEDILOL 6.25 MG TABLET PO SCH ×2 (09:00→17:00)
[2019-11-25] MEDS ORDERED: DEXTROSE 50% WATER 50ML SYRINGE IV PRN (09:30)
[2019-11-25] MEDS: ENOXAPARIN 30MG/0.3ML SYR SUBCUT SCH (09:57)
[2019-11-25 12:00] VITALS: BP 157/77
[2019-11-25] MEDS: BLOOD SUGAR DIAGNOSTIC STRIP TEST SCH ×3 (12:40→21:27)
[2019-11-25] MEDS: INSULIN LISPRO 100 UNITS/ML SUBCUT SCH ×3 (13:10→21:00)
[2019-11-25] MEDS: HYDRALAZINE HCL 50MG TABLET PO SCH ×2 (14:00→22:00)
[2019-11-25 16:00] VITALS: BP 124/65
[2019-11-25] MEDS: CEFEPIME 1,000 MG in DEXTROSE 5% WATER 50 ML IV SCH (18:32)
[2019-11-25 19:12] LABS: PLATELET ESTIMATE DECREASED
[2019-11-25 20:00] VITALS: BP 119/63
[2019-11-25] MEDS ORDERED: CEFTRIAXONE 1,000 MG in DEXTROSE 5% WATER 50 ML IV SCH (22:00)
[2019-11-25] MEDS ORDERED: AZITHROMYCIN 250 MG in DEXT 5% WATER 250 ML IV SCH (23:00)
[2019-11-26] VITALS: BP 113/46
[2019-11-26 04:00] VITALS: BP 95/64
[2019-11-26] MEDS ORDERED: AMIODARONE HCL 50MG/ML 3ML VIAL IV STA (05:12)
[2019-11-26] MEDS ORDERED: AMIODARONE HCL 150 MG in DEXT 5% WATER 100 ML IV SCH (05:30)
[2019-11-26] MEDS: HYDRALAZINE HCL 50MG TABLET PO SCH ×3 (06:00→21:02)
[2019-11-26] MEDS: BLOOD SUGAR DIAGNOSTIC STRIP TEST SCH ×4 (06:35→20:59)
[2019-11-26 07:53] LABS: BASOPHILS % 0.2 % (0.0-2.0); EOSINOPHILS % 0.1 % (0.0-5.0); HEMATOCRIT. 35.7 % (42.0-52.0); HEMOGLOBIN. 11.9 g/dL (14.0-18.0); LYMPHOCYTES % 8.3 % (20.0-50.0); MEAN CORPUSCULAR HEMOGLOBIN 31.5 pg (28.0-32.0); MEAN CORPUSCULAR VOLUME 94.7 fL (80.0-94.0); NEUTROPHILS % 81.4 % (40.0-76.0); PLATELET 128 x1000/uL (130-400); RED BLOOD CELL COUNT 3.77 mill/uL (4.7-6.1); RED CELL DISTRIBUTION WIDTH 16.8 % (11.6-14.6)
[2019-11-26 08:00] VITALS: BP 129/71
[2019-11-26] MEDS: INSULIN LISPRO 100 UNITS/ML SUBCUT SCH ×4 (08:10→20:59)
[2019-11-26] MEDS: AMLODIPINE 10MG TABLET PO SCH (08:20)
[2019-11-26] MEDS: CEFEPIME 1,000 MG in DEXTROSE 5% WATER 50 ML IV SCH (08:20)
[2019-11-26] MEDS: ENOXAPARIN 30MG/0.3ML SYR SUBCUT SCH (08:20)
[2019-11-26] MEDS: CARVEDILOL 6.25 MG TABLET PO SCH (08:20)
[2019-11-26 12:00] VITALS: BP 112/58
[2019-11-26 16:00] VITALS: BP 103/60
[2019-11-26 20:00] VITALS: BP 125/67
[2019-11-26] MEDS: CARVEDILOL 12.5MG TABLET PO SCH (21:01)
[2019-11-27] VITALS: BP 125/70
[2019-11-27 04:00] VITALS: BP 107/65
[2019-11-27] MEDS: HYDRALAZINE HCL 50MG TABLET PO SCH ×3 (06:00→20:53)
[2019-11-27 06:27] LABS: BASOPHILS % 0.4 % (0.0-2.0); EOSINOPHILS % 0.7 % (0.0-5.0); HEMATOCRIT. 32.3 % (42.0-52.0); HEMOGLOBIN. 10.6 g/dL (14.0-18.0); LYMPHOCYTES % 9.3 % (20.0-50.0); MEAN CORPUSCULAR HEMOGLOBIN 31.3 pg (28.0-32.0); MEAN CORPUSCULAR VOLUME 95.1 fL (80.0-94.0); MEAN PLATELET VOLUME 9.2 fl (7.4-10.4); MONOCYTES % 9.1 % (2.0-8.0); NEUTROPHILS % 80.5 % (40.0-76.0); PLATELET 137 x1000/uL (130-400); RED BLOOD CELL COUNT 3.39 mill/uL (4.7-6.1)
[2019-11-27] MEDS: INSULIN LISPRO 100 UNITS/ML SUBCUT SCH ×4 (06:30→20:53)
[2019-11-27] MEDS: BLOOD SUGAR DIAGNOSTIC STRIP TEST SCH ×4 (06:30→20:54)
[2019-11-27 08:00] VITALS: BP 105/55
[2019-11-27] MEDS: CARVEDILOL 12.5MG TABLET PO SCH ×2 (08:10→20:53)
[2019-11-27] MEDS: ENOXAPARIN 30MG/0.3ML SYR SUBCUT SCH (09:04)
[2019-11-27] MEDS: FOLIC ACID/VITAMIN B COMP W-C TABLET PO SCH (09:05)
[2019-11-27] MEDS: CEFEPIME 1,000 MG in DEXTROSE 5% WATER 50 ML IV SCH (09:05)
[2019-11-27] MEDS: AMLODIPINE 10MG TABLET PO SCH (09:05)
[2019-11-27 12:00] VITALS: BP 119/67
[2019-11-27 15:51] VITALS: BP 132/68
[2019-11-27 20:00] VITALS: BP 123/68
[2019-11-28] VITALS: BP 108/65
[2019-11-28 04:00] VITALS: BP 114/66
[2019-11-28] MEDS: BLOOD SUGAR DIAGNOSTIC STRIP TEST SCH ×2 (05:50→11:45)
[2019-11-28] MEDS: INSULIN LISPRO 100 UNITS/ML SUBCUT SCH ×2 (05:50→12:58)
[2019-11-28] MEDS: HYDRALAZINE HCL 50MG TABLET PO SCH ×2 (05:59→13:51)
[2019-11-28 08:00] VITALS: BP 138/70
[2019-11-28] MEDS: CEFEPIME 1,000 MG in DEXTROSE 5% WATER 50 ML IV SCH (09:15)
[2019-11-28] MEDS: CARVEDILOL 12.5MG TABLET PO SCH (09:16)
[2019-11-28] MEDS: ENOXAPARIN 30MG/0.3ML SYR SUBCUT SCH (09:16)
[2019-11-28] MEDS: FOLIC ACID/VITAMIN B COMP W-C TABLET PO SCH (09:16)
[2019-11-28] MEDS: AMLODIPINE 10MG TABLET PO SCH (09:16)
[2019-11-28] MEDS: ACETAMINOPHEN 325MG TABLET PO PRN (09:17)
[2019-11-28] MEDS ORDERED: GENTAMICIN SULFATE 160 MG in SODIUM CHLORIDE 0.9% 50 ML IV NR (11:00)
[2019-11-28 12:00] VITALS: BP 110/59
[2019-11-28 14:06] VITALS: BP 110/59
== END 2019-11-28 17:45 | DRG 871 ==
LOC: ER 14:06 → EDBEDREQ 17:19 → EDBEDREQTM 17:19 → MICUSO 19:08 → EDBEDREQ 19:33 → 7WST 11-25 01:20 → 8WST 11-26 21:10
PROVIDERS: ADMIT Hospitalist; ATTEND Hospitalist
PROC: 5A1D70Z Performance of Urinary Filtration, Intermittent, Less than 6 Hours Per Day (ICD-10-PCS; principal; 2019-11-25)
PROC: 5A1D70Z Performance of Urinary Filtration, Intermittent, Less than 6 Hours Per Day (ICD-10-PCS; 2019-11-27)
DX: A41.51 Sepsis due to Escherichia coli [E. coli] (principal); N18.6 End stage renal disease; G93.41 Metabolic encephalopathy; I13.2 Hypertensive heart and chronic kidney disease with heart failure and with stage 5 chronic kidney disease, or end stage renal disease; I42.9 Cardiomyopathy, unspecified; I48.92 Unspecified atrial flutter; I69.351 Hemiplegia and hemiparesis following cerebral infarction affecting right dominant side; L03.115 Cellulitis of right lower limb; L97.919 Non-pressure chronic ulcer of unspecified part of right lower leg with unspecified severity; L97.929 Non-pressure chronic ulcer of unspecified part of left lower leg with unspecified severity; D68.59 Other primary thrombophilia; Z99.2 Dependence on renal dialysis; E11.22 Type 2 diabetes mellitus with diabetic chronic kidney disease; E11.319 Type 2 diabetes mellitus with unspecified diabetic retinopathy without macular edema; E11.40 Type 2 diabetes mellitus with diabetic neuropathy, unspecified; E11.51 Type 2 diabetes mellitus with diabetic peripheral angiopathy without gangrene; E78.5 Hyperlipidemia, unspecified; I25.10 Atherosclerotic heart disease of native coronary artery without angina pectoris; I25.2 Old myocardial infarction; I48.0 Paroxysmal atrial fibrillation; I50.9 Heart failure, unspecified; L89.159 Pressure ulcer of sacral region, unspecified stage; Z20.828 Contact with and (suspected) exposure to other viral communicable diseases; K80.20 Calculus of gallbladder without cholecystitis without obstruction; L97.519 Non-pressure chronic ulcer of other part of right foot with unspecified severity; E78.00 Pure hypercholesterolemia, unspecified; E11.621 Type 2 diabetes mellitus with foot ulcer; E87.5 Hyperkalemia; I87.2 Venous insufficiency (chronic) (peripheral); K21.9 Gastro-esophageal reflux disease without esophagitis; Z89.422 Acquired absence of other left toe(s); Z78.9 Other specified health status; Z79.01 Long term (current) use of anticoagulants; Z79.4 Long term (current) use of insulin; Z91.19 Patient's noncompliance with other medical treatment and regimen; Z79.899 Other long term (current) drug therapy; Z79.82 Long term (current) use of aspirin
CPT/HCPCS: 36415; 71045; 73700; 74176; 80048; 80053; 80076; 82962; 83036; 83605; 83735; 83880; 84145; 84443; 84484; 85025; 87077; 87186; 87635; 93005; 93306; 93970; 99285; J0282; J0456; J0692; J0696; J1580; J1650; J1815; J2060; J2543; J3370; J7030; J7060

== ENCOUNTER 2020-03-04 14:31 | Inpatient (IN) | payer MEDICARE, MEDICAID ==
[~2020-03-04] VITALS: Ht 182.9 cm; Wt 104.8 kg
[~2020-03-04 14:31] MED LIST changes: -HYDR-3281 PO; +HYDR-4346 PO
[2020-03-04 15:43] LABS: BASOPHILS % 0.6 % (0.0-2.0); EOSINOPHILS % 0.1 % (0.0-5.0); HEMATOCRIT. 34.9 % (42.0-52.0); HEMOGLOBIN. 11.2 g/dL (14.0-18.0); LYMPHOCYTES % 15.7 % (20.0-50.0); MEAN CORPUSCULAR HEMOGLOBIN 30.2 pg (28.0-32.0); MEAN CORPUSCULAR VOLUME 93.8 fL (80.0-94.0); MEAN PLATELET VOLUME 8.4 fl (7.4-10.4); MONOCYTES % 11.8 % (2.0-8.0); NEUTROPHILS % 71.8 % (40.0-76.0); PLATELET 115 x1000/uL (130-400); RED BLOOD CELL COUNT 3.72 mill/uL (4.7-6.1); RED CELL DISTRIBUTION WIDTH 15.7 % (11.6-14.6)
[2020-03-04 15:45] LABS: CHLORIDE 102 mEq/L (98-107)
[2020-03-04 15:49] LABS: INR 1.1; PROTHROMBIN TIME 11.3 sec (9.6-11.0)
[2020-03-04 15:51] LABS: ETHANOL BLOOD < 10 mg/dL
[2020-03-04 16:58] LABS: CLARITY URINE CLOUDY (CLEAR); COLOR URINE YELLOW (YELLOW); KETONES URINE NEGATIVE (NEGATIVE); LEUKOCYTE ESTERASE URINE 3+ (NEGATIVE); NITRITE URINE NEGATIVE (NEGATIVE); OCCULT BLOOD URINE 2+ (NEGATIVE); PH URINE 7.5 (4.5-8.0); PROTEIN URINE 3+ (NEGATIVE); SPECIFIC GRAVITY URINE 1.016 (1.005-1.030); UROBILINOGEN URINE 0.2 E.U./dL (0.2-1.0)
[2020-03-04 17:10] LABS: *AMPHETAMINES SCREEN URINE NEGATIVE (NEGATIVE); *BARBITURATES SCREEN URINE NEGATIVE (NEGATIVE); *BENZODIAZEPINES SCREEN URINE NEGATIVE (NEGATIVE); *COCAINE SCREEN URINE NEGATIVE (NEGATIVE); METHADONE URINE SCREEN NEGATIVE (NEGATIVE); OPIATES URINE SCREEN NEGATIVE (NEGATIVE)
[2020-03-04 17:12] LABS: CANNABINOID URINE SCREEN NEGATIVE (NEGATIVE); PHENCYCLIDINE URINE SCREEN NEGATIVE (NEGATIVE)
[2020-03-05] MEDS ORDERED: NA PHOS,M-B/NA PHOS,DI-BA ENEMA 118ML PR PRN (11:15)
[2020-03-05] MEDS ORDERED: DIPHENHYDRAMINE 50MG/ML VIAL IV PRN (11:15)
[2020-03-05] MEDS ORDERED: IPRATROPIUM/ALBUTEROL 0.5-3(2.5)MG/3ML NEB NEB PRN (11:15)
[2020-03-05] MEDS ORDERED: CLONIDINE 0.1MG TABLET PO PRN (11:15)
[2020-03-05] MEDS ORDERED: DOCUSATE SODIUM 100MG CAPSULE PO PRN (11:15)
[2020-03-05] MEDS ORDERED: MORPHINE SULFATE 2 MG/ML CPJ (NOT FOR IM USE) IV PRN (11:15)
[2020-03-05] MEDS ORDERED: HYDROCODONE/ACETAMINOPHEN 10/325MG TABLET PO PRN (11:15)
[2020-03-05] MEDS ORDERED: MAGNESIUM/ALUMINUM HYDROXIDE/SIMETHICONE 30ML UDC PO PRN (11:15)
[2020-03-05] MEDS ORDERED: ONDANSETRON HCL 4MG/2ML INJ IV PRN (11:15)
[2020-03-05] MEDS ORDERED: ACETAMINOPHEN 325MG TABLET PO PRN (11:15)
[2020-03-05] MEDS ORDERED: LORAZEPAM 2MG/ML CPJ IV PRN (11:15)
[2020-03-05] MEDS ORDERED: GUAIFENESIN 200MG/10ML SUGAR FREE UDC PO PRN (11:15)
[2020-03-06 01:26] LABS: CREATINE KINASE MB FRACTION 7.3 ng/mL (0.5-3.6)
[2020-03-06 06:47] LABS: BASOPHILS % 0.5 % (0.0-2.0); EOSINOPHILS % 0.1 % (0.0-5.0); HEMATOCRIT. 34.1 % (42.0-52.0); HEMOGLOBIN. 11.2 g/dL (14.0-18.0); LYMPHOCYTES % 17.2 % (20.0-50.0); MEAN CORPUSCULAR HEMOGLOBIN 30.9 pg (28.0-32.0); MEAN CORPUSCULAR VOLUME 94.1 fL (80.0-94.0); MEAN PLATELET VOLUME 8.6 fl (7.4-10.4); MONOCYTES % 9.5 % (2.0-8.0); NEUTROPHILS % 72.7 % (40.0-76.0); PLATELET 119 x1000/uL (130-400); RED BLOOD CELL COUNT 3.62 mill/uL (4.7-6.1); RED CELL DISTRIBUTION WIDTH 15.9 % (11.6-14.6)
[2020-03-06 06:53] LABS: CHLORIDE 104 mEq/L (98-107)
[2020-03-06 07:02] LABS: LDL CHOLESTEROL 57 mg/dL (5-100)
[2020-03-06 07:04] LABS: CREATINE KINASE MB FRACTION 6.8 ng/mL (0.5-3.6); HDL CHOLESTEROL 42 mg/dL (40-59); T4 FREE 1.17 ng/dL (0.76-1.46)
[2020-03-06 07:16] LABS: CREATINE KINASE 1418 IU/L (39-308)
[2020-03-06 11:30] VITALS: BP 134/62
[2020-03-06 12:00] VITALS: BP 111/54
[2020-03-06 15:24] LABS: CREATINE KINASE MB FRACTION 5.7 ng/mL (0.5-3.6)
[2020-03-06] MEDS: ASPIRIN 81MG EC TABLET PO SCH (18:12)
[2020-03-06] MEDS ORDERED: DEXTROSE 50% WATER 50ML SYRINGE IV PRN (19:45)
[2020-03-06 20:00] VITALS: BP 111/57
[2020-03-06] MEDS: INSULIN LISPRO 100 UNITS/ML SUBCUT SCH (21:00)
[2020-03-06] MEDS: BLOOD SUGAR DIAGNOSTIC STRIP TEST SCH (21:00)
[2020-03-07] VITALS: BP 127/58
[2020-03-07 04:00] VITALS: BP 160/71
[2020-03-07] MEDS: BLOOD SUGAR DIAGNOSTIC STRIP TEST SCH ×4 (06:31→21:00)
[2020-03-07] MEDS: INSULIN LISPRO 100 UNITS/ML SUBCUT SCH ×3 (06:31→21:00)
[2020-03-07 07:32] LABS: BASOPHILS % 0.4 % (0.0-2.0); EOSINOPHILS % 0.1 % (0.0-5.0); HEMATOCRIT. 33.6 % (42.0-52.0); LYMPHOCYTES % 8.5 % (20.0-50.0); MEAN CORPUSCULAR HEMOGLOBIN 30.6 pg (28.0-32.0); MEAN CORPUSCULAR VOLUME 93.2 fL (80.0-94.0); MEAN PLATELET VOLUME 8.5 fl (7.4-10.4); MONOCYTES % 7.4 % (2.0-8.0); NEUTROPHILS % 83.6 % (40.0-76.0); PLATELET 128 x1000/uL (130-400); RED CELL DISTRIBUTION WIDTH 15.6 % (11.6-14.6)
[2020-03-07 08:00] VITALS: BP 135/72
[2020-03-07] MEDS: ASPIRIN 81MG EC TABLET PO SCH (08:54)
[2020-03-07 12:00] VITALS: BP 112/66
[2020-03-07 16:00] VITALS: BP 124/69
[2020-03-07] MEDS ORDERED: AZITHROMYCIN 500 MG in DEXT 5% WATER 250 ML IV SCH (17:00)
[2020-03-07] MEDS: AZITHROMYCIN 500 MG in DEXT 5% WATER 250 ML IV SCH (19:25)
[2020-03-08 08:00] VITALS: BP 149/85
[2020-03-08] MEDS: INSULIN LISPRO 100 UNITS/ML SUBCUT SCH ×4 (08:10→21:00)
[2020-03-08] MEDS: BLOOD SUGAR DIAGNOSTIC STRIP TEST SCH ×4 (08:22→21:00)
[2020-03-08] MEDS: ASPIRIN 81MG EC TABLET PO SCH (10:21)
[2020-03-08 12:00] VITALS: BP 135/71
[2020-03-08 16:00] VITALS: BP 122/70
[2020-03-08 20:00] VITALS: BP 130/81
[2020-03-08] MEDS: AZITHROMYCIN 500 MG in DEXT 5% WATER 250 ML IV SCH (20:00)
[2020-03-09] VITALS: BP 129/74
[2020-03-09 04:00] VITALS: BP 138/74
[2020-03-09] MEDS: BLOOD SUGAR DIAGNOSTIC STRIP TEST SCH ×4 (07:41→21:00)
[2020-03-09] MEDS: INSULIN LISPRO 100 UNITS/ML SUBCUT SCH ×4 (07:42→21:00)
[2020-03-09 08:00] VITALS: BP 159/95
[2020-03-09] MEDS: ASPIRIN 81MG EC TABLET PO SCH ×2 (09:00→10:04)
[2020-03-09] MEDS: LIDOCAINE HCL 1% 20ML VIAL (Pyxis) INJ MC NR ×2 (14:18→14:21)
[2020-03-09 16:00] VITALS: BP 118/86
[2020-03-09 20:00] VITALS: BP 128/69
[2020-03-09] MEDS: AZITHROMYCIN 500 MG in DEXT 5% WATER 250 ML IV SCH (20:00)
[2020-03-10] VITALS: BP 120/76
[2020-03-10 01:15] VITALS: BP 127/78
[2020-03-10] MEDS: BLOOD SUGAR DIAGNOSTIC STRIP TEST SCH ×3 (07:20→17:20)
[2020-03-10] MEDS: INSULIN LISPRO 100 UNITS/ML SUBCUT SCH ×3 (07:50→17:28)
[2020-03-10 07:52] VITALS: BP 125/80
[2020-03-10] MEDS: ASPIRIN 81MG EC TABLET PO SCH (09:46)
[2020-03-10 17:58] VITALS: BP 141/88
== END 2020-03-10 19:40 | DRG 177 ==
LOC: ER 14:48 → 5WST 16:59 → EDBEDREQ 17:08 → ENRESERV 03-06 08:52 → 7WST 03-07 16:17 → 6WST 03-10 01:04
PROVIDERS: ADMIT Internal Medicine; ATTEND Internal Medicine
PROC: 5A1D70Z Performance of Urinary Filtration, Intermittent, Less than 6 Hours Per Day (ICD-10-PCS; principal; 2020-03-05)
PROC: 5A1D70Z Performance of Urinary Filtration, Intermittent, Less than 6 Hours Per Day (ICD-10-PCS; 2020-03-08)
DX: U07.1 COVID-19 (principal); N18.6 End stage renal disease; J12.82 Pneumonia due to coronavirus disease 2019; G93.41 Metabolic encephalopathy; E46 Unspecified protein-calorie malnutrition; I13.2 Hypertensive heart and chronic kidney disease with heart failure and with stage 5 chronic kidney disease, or end stage renal disease; D64.9 Anemia, unspecified; E11.621 Type 2 diabetes mellitus with foot ulcer; E11.22 Type 2 diabetes mellitus with diabetic chronic kidney disease; G89.4 Chronic pain syndrome; I25.10 Atherosclerotic heart disease of native coronary artery without angina pectoris; I48.0 Paroxysmal atrial fibrillation; L89.159 Pressure ulcer of sacral region, unspecified stage; D69.6 Thrombocytopenia, unspecified; L97.509 Non-pressure chronic ulcer of other part of unspecified foot with unspecified severity; E78.5 Hyperlipidemia, unspecified; E87.5 Hyperkalemia; E11.51 Type 2 diabetes mellitus with diabetic peripheral angiopathy without gangrene; I50.9 Heart failure, unspecified; R55 Syncope and collapse; E78.00 Pure hypercholesterolemia, unspecified; Z99.2 Dependence on renal dialysis; I25.2 Old myocardial infarction; Z86.73 Personal history of transient ischemic attack (TIA), and cerebral infarction without residual deficits; Z79.01 Long term (current) use of anticoagulants; Z79.899 Other long term (current) drug therapy; Z79.891 Long term (current) use of opiate analgesic; Z79.82 Long term (current) use of aspirin; Z89.9 Acquired absence of limb, unspecified; Z68.31 Body mass index [BMI] 31.0-31.9, adult
CPT/HCPCS: 36415; 71045; 80048; 80053; 80061; 80305; 80320; 81003; 82550; 82553; 82962; 83036; 83880; 84439; 84443; 84484; 85025; 85379; 87635; 93005; 93306; 99285; A6261; J0456; J1815; J3490; J7060; G0480

== ENCOUNTER 2021-03-15 14:39 | Inpatient (IN) | payer MEDICARE, MEDICAID ==
[~2021-03-15] VITALS: Ht 175.3 cm; Wt 112.5 kg
[2021-03-15 16:04] LABS: BASOPHILS % 0.5 % (0.0-2.0); EOSINOPHILS % 1.1 % (0.0-5.0); HEMATOCRIT. 35.2 % (42.0-52.0); LYMPHOCYTES % 10.7 % (20.0-50.0); MEAN CORPUSCULAR HEMOGLOBIN 28.6 pg (28.0-32.0); MEAN CORPUSCULAR VOLUME 91.4 fL (80.0-94.0); MEAN PLATELET VOLUME 7.9 fl (7.4-10.4); MONOCYTES % 11.9 % (2.0-8.0); NEUTROPHILS % 75.8 % (40.0-76.0); PLATELET 183 x1000/uL (130-400); RED BLOOD CELL COUNT 3.86 mill/uL (4.7-6.1); RED CELL DISTRIBUTION WIDTH 17.4 % (11.6-14.6)
[2021-03-15 16:11] LABS: CHLORIDE 106 mEq/L (98-107)
[2021-03-15] MEDS ORDERED: VANCOMYCIN 1 G PREMIX 200 ML IV ONE (22:45)
[2021-03-15] MEDS ORDERED: PIPERACILLIN/TAZ 3.375G PREMIX 50 ML IV ONE (22:45)
[2021-03-16] MEDS ORDERED: HYDRALAZINE 20MG/ML VIAL IV NR (11:15)
[2021-03-16] MEDS ORDERED: ONDANSETRON HCL 4MG/2ML INJ IV PRN (11:15)
[2021-03-16] MEDS ORDERED: ACETAMINOPHEN 325MG TABLET PO PRN (11:15)
[2021-03-16] MEDS: BLOOD SUGAR DIAGNOSTIC STRIP TEST SCH ×5 (11:30→22:40)
[2021-03-16] MEDS ORDERED: DEXTROSE 50% WATER 50ML SYRINGE IV PRN (11:30)
[2021-03-16] MEDS ORDERED: AMLODIPINE 10MG TABLET PO SCH (11:30)
[2021-03-16 12:00] VITALS: BP 151/80
[2021-03-16] MEDS ORDERED: VANCOMYCIN 1 G PREMIX 200 ML IV NR (12:00)
[2021-03-16] MEDS ORDERED: PIPERACILLIN/TAZOBACTAM 3.375 G in DEXTROSE 5% WATER 50 ML IV SCH (12:00)
[2021-03-16] MEDS: INSULIN LISPRO 100 UNITS/ML SUBCUT SCH ×3 (13:28→21:43)
[2021-03-16] MEDS: PIPERACILLIN/TAZOBACTAM 3.375 G in DEXTROSE 5% WATER 50 ML IV SCH ×2 (13:58→22:29)
[2021-03-16] MEDS ORDERED: HYDRALAZINE 10 MG in SODIUM CHLORIDE 0.9% 49.5 ML IV NR (15:00)
[2021-03-16] MEDS ORDERED: DOCUSATE SODIUM 100MG CAPSULE PO PRN (15:30)
[2021-03-16 16:00] VITALS: BP 155/87
[2021-03-16] MEDS ORDERED: INFLUENZA VACCINE 05/PF 0.5 ML SYRINGE IM ONE (16:00)
[2021-03-16 16:01] VITALS: BP 140/60
[2021-03-16] MEDS ORDERED: CLONIDINE 0.1MG TABLET PO PRN (16:15)
[2021-03-16] MEDS: APIXABAN 2.5 MG TABLET PO SCH (17:13)
[2021-03-16] MEDS: AMIODARONE HCL 200 MG TABLET PO SCH (17:13)
[2021-03-16] MEDS: CARVEDILOL 3.125 MG TABLET PO SCH (17:13)
[2021-03-16] MEDS: CHOLECALCIFEROL (D3) 1000 UNIT TABLET PO SCH (17:13)
[2021-03-16] MEDS: SEVELAMER CARBONATE 800 MG TABLET PO SCH (17:51)
[2021-03-16 20:00] VITALS: BP 134/63
[2021-03-16] MEDS: ATORVASTATIN CALCIUM 20MG TABLET PO SCH (22:29)
[2021-03-16] MEDS: HYDRALAZINE HCL 50MG TABLET PO SCH (22:29)
[2021-03-17] VITALS: BP 124/64
[2021-03-17 04:00] VITALS: BP 135/77
[2021-03-17] MEDS: HYDRALAZINE HCL 50MG TABLET PO SCH ×3 (06:38→21:47)
[2021-03-17] MEDS: INSULIN LISPRO 100 UNITS/ML SUBCUT SCH ×4 (07:50→21:00)
[2021-03-17 08:00] VITALS: BP 140/76
[2021-03-17] MEDS: SODIUM HYPOCHLORITE 0.125% 473ML SOLUTION TOP SCH (09:00)
[2021-03-17] MEDS: PIPERACILLIN/TAZOBACTAM 3.375 G in DEXTROSE 5% WATER 50 ML IV SCH ×2 (09:16→21:47)
[2021-03-17] MEDS: HYDROCODONE/ACETAMINOPHEN 5/325MG TABLET PO PRN (09:18)
[2021-03-17] MEDS: SEVELAMER CARBONATE 800 MG TABLET PO SCH ×3 (09:19→17:22)
[2021-03-17] MEDS: FOLIC ACID/VITAMIN B COMP W-C TABLET PO SCH (09:20)
[2021-03-17] MEDS: APIXABAN 2.5 MG TABLET PO SCH ×2 (09:20→17:22)
[2021-03-17] MEDS: AMIODARONE HCL 200 MG TABLET PO SCH ×2 (09:20→21:47)
[2021-03-17] MEDS: LOSARTAN POTASSIUM 50 MG TABLET PO SCH (09:20)
[2021-03-17] MEDS: CHOLECALCIFEROL (D3) 1000 UNIT TABLET PO SCH (09:20)
[2021-03-17] MEDS: ASPIRIN 81MG EC TABLET PO SCH (09:20)
[2021-03-17] MEDS: CARVEDILOL 3.125 MG TABLET PO SCH ×2 (09:21→21:47)
[2021-03-17] MEDS: ASCORBIC ACID 500 MG TABLET PO SCH (09:21)
[2021-03-17] MEDS: DILTIAZEM HCL 120MG CAPSULE CD 24HR PO SCH (09:24)
[2021-03-17] MEDS: BLOOD SUGAR DIAGNOSTIC STRIP TEST SCH ×3 (13:00→20:42)
[2021-03-17 20:00] VITALS: BP 116/63
[2021-03-17] MEDS: ATORVASTATIN CALCIUM 20MG TABLET PO SCH (21:47)
[2021-03-18] VITALS: BP 114/58
[2021-03-18 04:00] VITALS: BP 109/52
[2021-03-18 04:33] LABS: HEPATITIS B SURFACE ANTIGEN NEGATIVE
[2021-03-18] MEDS: HYDRALAZINE HCL 50MG TABLET PO SCH ×3 (06:00→21:34)
[2021-03-18] MEDS: BLOOD SUGAR DIAGNOSTIC STRIP TEST SCH ×3 (06:51→17:20)
[2021-03-18] MEDS: INSULIN LISPRO 100 UNITS/ML SUBCUT SCH ×4 (07:50→20:40)
[2021-03-18] MEDS: SEVELAMER CARBONATE 800 MG TABLET PO SCH ×3 (07:50→19:03)
[2021-03-18 08:00] VITALS: BP 137/61
[2021-03-18] MEDS: LOSARTAN POTASSIUM 50 MG TABLET PO SCH (09:00)
[2021-03-18] MEDS: PIPERACILLIN/TAZOBACTAM 3.375 G in DEXTROSE 5% WATER 50 ML IV SCH ×2 (09:56→21:29)
[2021-03-18] MEDS: CARVEDILOL 3.125 MG TABLET PO SCH ×2 (10:06→20:43)
[2021-03-18] MEDS: DILTIAZEM HCL 120MG CAPSULE CD 24HR PO SCH (10:07)
[2021-03-18] MEDS: AMIODARONE HCL 200 MG TABLET PO SCH ×2 (10:08→20:43)
[2021-03-18] MEDS: ASCORBIC ACID 500 MG TABLET PO SCH (10:08)
[2021-03-18] MEDS: APIXABAN 2.5 MG TABLET PO SCH ×2 (10:08→19:03)
[2021-03-18] MEDS: FOLIC ACID/VITAMIN B COMP W-C TABLET PO SCH (10:08)
[2021-03-18] MEDS: CHOLECALCIFEROL (D3) 1000 UNIT TABLET PO SCH (10:09)
[2021-03-18] MEDS: ASPIRIN 81MG EC TABLET PO SCH (10:10)
[2021-03-18] MEDS: HYDROCODONE/ACETAMINOPHEN 5/325MG TABLET PO PRN ×2 (10:10→19:02)
[2021-03-18] MEDS: SODIUM HYPOCHLORITE 0.125% 473ML SOLUTION TOP SCH (10:11)
[2021-03-18 12:00] VITALS: BP 118/52
[2021-03-18 16:00] VITALS: BP 139/74
[2021-03-18] MEDS ORDERED: VANCOMYCIN 1 G PREMIX 200 ML IV NR (16:00)
[2021-03-18 20:00] VITALS: BP 135/53
[2021-03-18] MEDS: ATORVASTATIN CALCIUM 20MG TABLET PO SCH (20:42)
[2021-03-19] MEDS: HYDRALAZINE HCL 50MG TABLET PO SCH ×3 (06:34→14:00)
[2021-03-19] MEDS: BLOOD SUGAR DIAGNOSTIC STRIP TEST SCH ×3 (07:20→17:20)
[2021-03-19 07:50] VITALS: BP 108/46
[2021-03-19] MEDS: INSULIN LISPRO 100 UNITS/ML SUBCUT SCH ×3 (07:50→17:50)
[2021-03-19] MEDS: ASCORBIC ACID 500 MG TABLET PO SCH (08:52)
[2021-03-19] MEDS: PIPERACILLIN/TAZOBACTAM 3.375 G in DEXTROSE 5% WATER 50 ML IV SCH (08:52)
[2021-03-19] MEDS: SEVELAMER CARBONATE 800 MG TABLET PO SCH ×3 (08:52→18:20)
[2021-03-19] MEDS: AMIODARONE HCL 200 MG TABLET PO SCH (08:53)
[2021-03-19] MEDS: CHOLECALCIFEROL (D3) 1000 UNIT TABLET PO SCH (08:53)
[2021-03-19] MEDS: FOLIC ACID/VITAMIN B COMP W-C TABLET PO SCH (08:53)
[2021-03-19] MEDS: ASPIRIN 81MG EC TABLET PO SCH (08:53)
[2021-03-19] MEDS: APIXABAN 2.5 MG TABLET PO SCH ×2 (08:53→18:20)
[2021-03-19] MEDS: SODIUM HYPOCHLORITE 0.125% 473ML SOLUTION TOP SCH (08:54)
[2021-03-19] MEDS: LOSARTAN POTASSIUM 50 MG TABLET PO SCH (09:00)
[2021-03-19] MEDS: DILTIAZEM HCL 120MG CAPSULE CD 24HR PO SCH (09:00)
[2021-03-19] MEDS: CARVEDILOL 3.125 MG TABLET PO SCH (09:00)
[2021-03-19 12:00] VITALS: BP 139/65
[2021-03-19 15:26] VITALS: BP 139/65
[2021-03-19 16:00] VITALS: BP 130/60
[2021-03-19 18:33] VITALS: BP 130/60
== END 2021-03-19 20:05 | DRG 299 ==
LOC: ER 14:39 → MICUSO 03-16 01:27 → EDBEDREQDT 03-16 01:35 → EDBEDREQTM 03-16 01:35 → EDBEDREQ 03-16 01:35 → 6EST 03-16 11:33
PROVIDERS: ADMIT Internal Medicine; ATTEND Internal Medicine
PROC: 5A1D70Z Performance of Urinary Filtration, Intermittent, Less than 6 Hours Per Day (ICD-10-PCS; principal; 2021-03-16)
PROC: 5A1D70Z Performance of Urinary Filtration, Intermittent, Less than 6 Hours Per Day (ICD-10-PCS; 2021-03-18)
DX: I83.028 Varicose veins of left lower extremity with ulcer other part of lower leg (principal); N18.6 End stage renal disease; E43 Unspecified severe protein-calorie malnutrition; L97.829 Non-pressure chronic ulcer of other part of left lower leg with unspecified severity; L97.819 Non-pressure chronic ulcer of other part of right lower leg with unspecified severity; I12.0 Hypertensive chronic kidney disease with stage 5 chronic kidney disease or end stage renal disease; E11.22 Type 2 diabetes mellitus with diabetic chronic kidney disease; E11.51 Type 2 diabetes mellitus with diabetic peripheral angiopathy without gangrene; D64.9 Anemia, unspecified; R74.01 Elevation of levels of liver transaminase levels; I48.0 Paroxysmal atrial fibrillation; R60.1 Generalized edema; I25.10 Atherosclerotic heart disease of native coronary artery without angina pectoris; Z20.822 Contact with and (suspected) exposure to COVID-19; Z86.73 Personal history of transient ischemic attack (TIA), and cerebral infarction without residual deficits; Z91.15 Patient's noncompliance with renal dialysis; Z99.2 Dependence on renal dialysis; Z68.36 Body mass index [BMI] 36.0-36.9, adult; Z79.4 Long term (current) use of insulin; Z79.82 Long term (current) use of aspirin; Z89.422 Acquired absence of other left toe(s); Z79.899 Other long term (current) drug therapy; I83.018 Varicose veins of right lower extremity with ulcer other part of lower leg
CPT/HCPCS: 36415; 73590; 80053; 80202; 82962; 85025; 85651; 86140; 86705; 86709; 86803; 87070; 87077; 87186; 87340; 87426; 93005; 93923; 97022; 97161; 99285; J0360; J1815; J2543; J3370; J7040; J7060

== ENCOUNTER 2022-11-05 23:06 | Emergency (ER) | payer MEDICARE, MEDICAID ==
[~2022-11-05] VITALS: Ht 177.8 cm; Wt 105.0 kg
[2022-11-05 23:15] VITALS: O2SAT 100
[2022-11-06 00:12] LABS: BASOPHILS % 0.5 % (0.0-2.0); DIFFERENTIAL COMMENT 0; EOSINOPHILS % 1.4 % (0.0-5.0); HEMATOCRIT. 33.8 % (42.0-52.0); LYMPHOCYTES % 12.1 % (20.0-50.0); MEAN CORPUSCULAR HEMOGLOBIN 32.6 pg (28.0-32.0); MEAN CORPUSCULAR HGB CONC 32.5 g/dL (31.0-37.0); MEAN CORPUSCULAR VOLUME 100.4 fL (80.0-94.0); MEAN PLATELET VOLUME 8.1 fl (7.4-10.4); MONOCYTES % 13.3 % (2.0-8.0); NEUTROPHILS % 72.7 % (40.0-76.0); PLATELET 162 x1000/uL (130-400); RED BLOOD CELL COUNT 3.36 mill/uL (4.7-6.1); RED CELL DISTRIBUTION WIDTH 15.9 % (11.6-14.6); WHITE BLOOD COUNT 6.2 x1000/uL (4.5-11.0)
[2022-11-06 00:16] LABS: CHLORIDE 106 mEq/L (98-107); INDEX HEMOLYSI 1 (1-3); INDEX ICTERIC 1 (1-4); INDEX LIPEMIC 1 (1-3); POTASSIUM 3.3 mEq/L (3.5-5.1); SODIUM 136 mEq/L (136-145)
[2022-11-06 00:27] LABS: ALANINE AMINOTRANSFERASE 77 IU/L (13-61); ASPARTATE AMINOTRANSFERASE 55 IU/L (15-37); BILIRUBIN TOTAL 0.3 mg/dL (0.1-1.0); CALCIUM 9.3 mg/dL (8.5-10.1); CARBON DIOXIDE 23 mEq/L (21-32); GLUCOSE 127 mg/dL (70-105); NT PRO B-TYPE NATRIURETIC PEP 4350 pg/mL (5-125); PROTEIN TOTAL 6.4 g/dL (6.0-8.3); TROPONIN I HIGH SENSITIVITY 56 ng/L (<78); UREA NITROGEN BLOOD 42 mg/dL (7-21)
[2022-11-06 00:41] LABS: CREATININE 8.4 mg/dL (0.6-1.3)
[2022-11-06 11:06] VITALS: BP 158/58; PULSE 60; RESP 15; TEMP 98.4
== END 2022-11-06 11:08 ==
LOC: ER 23:45
DX: R53.1 Weakness (principal); D64.9 Anemia, unspecified; I50.9 Heart failure, unspecified
CPT/HCPCS: 36415; 71045; 80053; 82962; 83880; 84484; 85025; 93005; 99285

== ENCOUNTER 2023-04-05 14:11 | Emergency (ER) | payer MEDICARE, MEDICAID ==
[~2023-04-05] VITALS: Ht 177.8 cm; Wt 123.0 kg
[~2023-04-05 14:11] MED LIST changes: -CLON-457 PO; +CLON-493 PO
[2023-04-05 14:25] VITALS: TEMP 97.9; O2SAT 97
[2023-04-05] MEDS ORDERED: ONDANSETRON HCL 4MG/2ML INJ IV ONE (14:45)
[2023-04-05] MEDS: SODIUM CHLORIDE 0.9% 1,000 ML IV ONE (15:21)
[2023-04-05] MEDS ORDERED: NOREPINEPHRINE 8 MG in DEXT 5% WATER 242 ML IV STA (15:56)
[2023-04-05] MEDS ORDERED: MIDAZOLAM HCL 100 MG in DEXT 5% WATER 80 ML IV ONE (16:00)
[2023-04-05] MEDS ORDERED: SODIUM CHLORIDE 0.9% 1000ML BAG (SEPSIS BOLUS) IV ONE (16:00)
[2023-04-05] MEDS ORDERED: PIPERACILLIN/TAZO 3.375G/50ML 50 ML IV ONE (16:00)
[2023-04-05] MEDS ORDERED: VANCOMYCIN 1G PREMIX 200 ML IV ONE (16:00)
[2023-04-05] MEDS: NOREPINEPHRINE 8MG/250ML PMX 250 ML IV ONE (16:15)
[2023-04-05 17:50] VITALS: PULSE 80; RESP 23
[2023-04-05] MEDS ORDERED: PHENYLEPHRINE 50 MG in DEXT 5% WATER 245 ML IV PRN (18:00)
[2023-04-05] MEDS ORDERED: NOREPINEPHRINE 8MG/250ML PMX 250 ML IV PRN (18:15)
[2023-04-05 18:16] LABS: BG BASE EXCESS -27.9 mmol/L (-2.0-2.0); BG DEOXYHEMOGLOBIN 51.3 % (0.0-5.0); BG FRACTION INSPIRED OXYGEN 100; BG HCO3 ACT 7.5 mmol/L (22.0-26.0); BG METHEMOGLOBIN 0.1 % (0.0-1.5); BG OXYGEN SATURATION 48.6 % (92.0-98.5); BG OXYHEMOGLOBIN 48.6 % (94.0-97.0); BG PCO2 57.7 mmHg (35.0-45.0); BG PH 6.729 (7.350-7.450); BG SAMPLE SITE RIGHT FEMORAL; BG TOTAL HEMOGLOBIN 10.7 g/dL (12.0-18.0); BG TOTAL RESPIRATORY RATE 21 b/min; BG VENT MODE PRBVC
[2023-04-05 18:18] LABS: HEMATOCRIT. 32.9 % (42.0-52.0); HEMOGLOBIN. 9.7 g/dL (14.0-18.0); MEAN CORPUSCULAR HEMOGLOBIN 30.5 pg (28.0-32.0); MEAN CORPUSCULAR HGB CONC 29.3 g/dL (31.0-37.0); MEAN CORPUSCULAR VOLUME 104.1 fL (80.0-94.0); MEAN PLATELET VOLUME 8.9 fl (7.4-10.4); PLATELET 137 x1000/uL (130-400); RED BLOOD CELL COUNT 3.16 mill/uL (4.7-6.1); RED CELL DISTRIBUTION WIDTH 21.2 % (11.6-14.6)
[2023-04-05 18:19] LABS: DIFFERENTIAL COMMENT 1
[2023-04-05] MEDS ORDERED: VASOPRESSIN 20 UNIT in SODIUM CHLORIDE 0.9% 99 ML IV PRN (18:30)
[2023-04-05 18:31] LABS: INR 1.4; PARTIAL THROMBOPLASTIN TIME 49.3 sec (23.4-31.0); PROTHROMBIN TIME 15.6 sec (9.6-11.0)
[2023-04-05] MEDS: PHENYLEPHRINE 50MG/250ML PMX IV PRN (18:33)
[2023-04-05] MEDS: TRANEXAMIC ACID 1,000 MG/10 ML IV ONE (18:33)
[2023-04-05 18:36] LABS: ALANINE AMINOTRANSFERASE 57 IU/L (10-49); ALBUMIN 3.2 g/dL (3.2-4.8); AMMONIA 75 uMol/L (<32); ASPARTATE AMINOTRANSFERASE 76 IU/L (<34); BILIRUBIN TOTAL 0.2 mg/dL (0.1-1.0); CARBON DIOXIDE 12 mEq/L (21-32); CHLORIDE 101 mEq/L (98-107); GLUCOSE 118 mg/dL (70-105); PROTEIN TOTAL 5.3 g/dL (6.0-8.3); SODIUM 143 mEq/L (136-145); TROPONIN I HIGH SENSITIVITY 44 ng/L (3.0-53); UREA NITROGEN BLOOD 53 mg/dL (9-23)
[2023-04-05 18:39] LABS: CREATININE 8.4 mg/dL (0.6-1.3)
[2023-04-05 18:48] VITALS: BP 81/42; PULSE 78; RESP 18
[2023-04-05 18:56] LABS: LACTIC ACID 17.6 mmol/L (0.4-2.0)
[2023-04-05] MEDS: DOPAMINE 400MG/250ML PREMIX 250 ML IV PRN (19:07)
[2023-04-05] MEDS: VASOPRESSIN 20 UNIT in SODIUM CHLORIDE 0.9% 99 ML IV STA (19:11)
[2023-04-05] MEDS ORDERED: DOPAMINE 800MG PREMIX (DOUBLE) 250 ML IV ONE (19:15)
[2023-04-05] MEDS ORDERED: PHYTONADIONE 10 MG in DEXTROSE 5% WATER 50 ML IV ONE (19:15)
[2023-04-05 19:26] LABS: ANISOCYTOSIS 1+; PLATELET ESTIMATE NORMAL
[2023-04-05] MEDS ORDERED: PHYTONADIONE 10MG/ML INJ IV NR (19:30)
== END 2023-04-05 22:25 ==
LOC: ER 14:11 → EDBEDREQ 16:02 → EDBEDREQTM 18:26 → EDBEDREQ 18:27 → ER 22:25 → CANBEDREQ 04-06 21:24
DX: R55 Syncope and collapse (principal); I95.9 Hypotension, unspecified; I46.9 Cardiac arrest, cause unspecified; J96.90 Respiratory failure, unspecified, unspecified whether with hypoxia or hypercapnia; R65.21 Severe sepsis with septic shock; D64.9 Anemia, unspecified; I50.9 Heart failure, unspecified; Z99.2 Dependence on renal dialysis; Z98.890 Other specified postprocedural states; Z79.899 Other long term (current) drug therapy
CPT/HCPCS: 82962; 71045; 36600; 93005; 80053; 82140; 83880; 83605; 85025; 85610; 85730; 86850; 86900; 86901; 86920; 84484; 36415; 84145; 82805; 82375; 92950; 31500 ×2; 36556; 99291; 86927; J2250; J1265 ×2; J3490 ×2; J7060; J7050; J7030; 94002; J2370; J3430; P9016; P9017